=== PATIENT | female | born 1935 ===

== ENCOUNTER → 2016-12-22 | Outpatient (CLI) | payer MEDICARE, BC ==
[~2016-12-22] MED LIST: APRESOLINE; CIPRO500 MG PO; CORDARONE,PACE200 MG PO; COREG6.25 MG PO; CRESTOR5 MG PO; GUIATUSS AC (D480 ML PO; HYDROCHLOROTH12.5 M1 PO; HYZAAR 100-12.1 EACH PO; NORCO 5-325 TA1 EACH PO; PHENERGAN WITH480 ML PO; REMERON; TYLENOL EXTRA500 MG; TYLENOL EXTRA500 MG PO; XARELTO15 MG PO
== END | disposition disaster alternative care site (69) ==
LOC: LKCL 13:23
DX: R19.7 Diarrhea, unspecified (principal)